=== PATIENT | female | born 1995 | race Caucasian/White ===

== ENCOUNTER 2016-08-14 19:27 | Emergency (ER) | payer MEDICAID, OTHER ==
[~2016-08-14] VITALS: Ht 157.5 cm; Wt 71.5 kg
[2016-08-14 19:31] VITALS: BP 99/64
[2016-08-14 20:32] LABS: PATH.CAST-FLAG NOT PRESENT; SPERM-FLAG NOT PRESENT; SRC-FLAG NOT PRESENT; XTAL-FLAG NOT PRESENT; YLC-FLAG NOT PRESENT
[2016-08-14 20:47] LABS: HCG UR OBC PASS
== END 2016-08-14 21:39 | disposition home or self-care (01) ==
LOC: ED 21:30
DX: N30.91 Cystitis, unspecified with hematuria (principal); N39.0 Urinary tract infection, site not specified
CPT/HCPCS: 81001; 81025; 87077; 87086; 87186; 99284

== ENCOUNTER 2018-02-02 19:38 | Emergency (ER) | payer MEDICAID, OTHER ==
[~2018-02-02] VITALS: Ht 160 cm; Wt 75.0 kg
[2018-02-02 19:51] VITALS: BP 137/83
== END 2018-02-02 21:40 | disposition home or self-care (01) ==
LOC: ED 20:04
DX: F33.9 Major depressive disorder, recurrent, unspecified (principal); F10.129 Alcohol abuse with intoxication, unspecified
CPT/HCPCS: 99284

== ENCOUNTER 2018-05-02 15:58 | Emergency (ER) | payer OTHER ==
[~2018-05-02] VITALS: Ht 157.5 cm; Wt 63.0 kg
[2018-05-02 16:17] VITALS: BP 112/71
[2018-05-02] MEDS ORDERED: MAALOX/HYOSCYAMINE/LIDOCAINE 45 ML BTL PO ONE (16:30)
[2018-05-02 17:10] LABS: BASOPHILS # (AUTO) 0.04 x10^3/uL (0-0.1); BASOPHILS % (AUTO) 1 % (0-1); EOSINOPHILS # (AUTO) 0.08 x10^3/uL (0-0.4); EOSINOPHILS % (AUTO) 1 % (1-7); LYMPHOCYTES # (AUTO) 2.14 x10^3/uL (1-3.4); LYMPHOCYTES % (AUTO) 28 % (22-44); MD NO; MEAN CORPUSCULAR HEMOGLOBIN 24.8 pg (27.0-34.8); MEAN CORPUSCULAR HGB CONC 32.1 g/dL (32.4-35.8); MEAN CORPUSCULAR VOLUME 77.3 fL (80-100); MEAN PLATELET VOLUME 9.2 fL (7.4-10.4); MONOCYTES # (AUTO) 0.44 x10^3/uL (0.2-0.8); MONOCYTES % (AUTO) 6 % (2-9); NEUTROPHILS # (AUTO) 4.83 x10^3/uL (1.8-6.8); NEUTROPHILS % (AUTO) 64 % (42-75); PLATELET COUNT 363 x10^3/uL (130-400); RED BLOOD COUNT 4.71 x10^6/uL (3.82-5.3)
[2018-05-02] MEDS ORDERED: MAALOX/HYOSCYAMINE/LIDOCAINE 45 ML BTL ONE (17:11)
[2018-05-02 17:22] LABS: ALANINE AMINOTRANSFERASE 17 U/L (12-78); ALBUMIN 3.5 g/dL (3.4-5.0); ANION GAP 6 mmol/L (5-15); CALCIUM 8.3 mg/dL (8.5-10.1); CHLORIDE 108 mmol/L (98-107); CREATININE 0.71 mg/dL (0.55-1.02)
[2018-05-02 17:27] LABS: ALKALINE PHOSPHATASE 78 U/L (45-117); BILIRUBIN,TOTAL 0.2 mg/dL (0.2-1.0); TOTAL PROTEIN 7.7 g/dL (6.4-8.2)
[2018-05-02 17:52] LABS: MICROSCOPIC AUTO
[2018-05-02 18:01] LABS: CULTURE INDICATED? YES
== END 2018-05-02 18:21 | disposition home or self-care (01) ==
LOC: ED 17:01
DX: K29.00 Acute gastritis without bleeding (principal); N30.01 Acute cystitis with hematuria; J06.9 Acute upper respiratory infection, unspecified; H65.01 Acute serous otitis media, right ear
CPT/HCPCS: 36415; 80053; 81001; 83690; 84703; 85025; 87086; 99283

== ENCOUNTER 2019-06-27 18:34 | Emergency (ER) | payer SELFPAY ==
[~2019-06-27] VITALS: Ht 157.5 cm; Wt 71.0 kg
[2019-06-27] MEDS ORDERED: ONDANSETRON 2MG/ML, 2ML ONE (18:50)
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
[2019-06-27] MEDS ORDERED: SODIUM CHLORIDE 0.9% 1,000ML IVBOLUS ONE (19:00)
[2019-06-27] MEDS ORDERED: ONDANSETRON 2MG/ML, 2ML IVPush ONE (19:00)
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
[2019-06-27 19:06] LABS: BASOPHILS # (AUTO) 0.03 x10^3/uL (0-0.1); BASOPHILS % (AUTO) 0 % (0-1); EOSINOPHILS # (AUTO) 0.11 x10^3/uL (0-0.4); EOSINOPHILS % (AUTO) 1 % (1-7); LYMPHOCYTES # (AUTO) 2.11 x10^3/uL (1-3.4); LYMPHOCYTES % (AUTO) 22 % (22-44); MD NO; MEAN CORPUSCULAR HEMOGLOBIN 25.7 pg (27.0-34.8); MEAN CORPUSCULAR HGB CONC 31.9 g/dL (32.4-35.8); MEAN CORPUSCULAR VOLUME 80.8 fL (80-100); MEAN PLATELET VOLUME 9.8 fL (7.4-10.4); MONOCYTES # (AUTO) 0.66 x10^3/uL (0.2-0.8); MONOCYTES % (AUTO) 7 % (2-9); NEUTROPHILS # (AUTO) 6.74 x10^3/uL (1.8-6.8); NEUTROPHILS % (AUTO) 70 % (42-75); PLATELET COUNT 299 x10^3/uL (130-400); RED BLOOD COUNT 5.14 x10^6/uL (3.82-5.3); RED CELL DISTRIBUTION WIDTH 17.2 % (9.6-15.2)
[2019-06-27 19:10] LABS: ALBUMIN 3.7 g/dL (3.4-5.0); ANION GAP 10 mmol/L (5-15); CALCIUM 7.9 mg/dL (8.5-10.1); CHLORIDE 110 mmol/L (98-107); SALICYLATE LEVEL 2.2 mg/dL (2.8-20.0)
--- NOTE | 2019-06-27 19:12 | NUR ---
OFFGOING NURSE STATES THAT PT SAID "I JUST WANT TO ", NO FURTHER INFOR OBTAINED AT THIS TIME DUE TO LEVEL OF ETOH.
[2019-06-27 19:16] LABS: ALANINE AMINOTRANSFERASE 17 U/L (12-78); ALKALINE PHOSPHATASE 58 U/L (45-117); BILIRUBIN,TOTAL 0.5 mg/dL (0.2-1.0); CREATININE 1.01 mg/dL (0.55-1.02); TOTAL PROTEIN 8.1 g/dL (6.4-8.2)
[2019-06-27] MEDS ORDERED: DEXTROSE 50%, 50ML SYRINGE ONE (19:55)
[2019-06-27] MEDS ORDERED: DEXTROSE 50%, 50ML SYRINGE IVPush ONE (20:00)
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
[2019-06-27 20:14] LABS: AMPHETAMINE SCREEN, URINE Negative (Negative); BARBITURATE SCREEN, URINE Negative (Negative); BENZODIAZEPINE SCREEN, URINE Negative (Negative); CANNABINOID SCREEN, URINE Positive (Negative); COCAINE SCREEN, URINE Negative (Negative); METHADONE SCREEN, URINE Negative (Negative); OPIATE SCREEN, URINE Negative (Negative)
--- NOTE | 2019-06-27 20:37 | NUR ---
PT AWAKENS VERBAL, IS AA AND O TIMES , REMAINS PLEASANT AND COOPERATIVE. PLAN TO TELEPSYCH PT WHEN SOBER.
--- NOTE | 2019-06-27 21:11 | NUR ---
AWAKEN VERBAL, FSBS 68, PT TAKING PO FLUIDS, APPLE JUICE. ONLY COMPLAIN IS DIZZINESS. REMAINS PLEASANT AND COOPERATIVE
--- NOTE | 2019-06-27 21:24 | NUR ---
PT MOVED TO ROOM 3, AWAIT SOBRIETY FOR TELE PSYCH. PT REMAINS PLEASANT AND COOPERATIVE WHEN AWAKE. AA O TIMES 4. TAKING MORE JUICE, PO FLUIDS AT BEDSIDE.
--- NOTE | 2019-06-27 23:09 | NUR ---
TELEPSYCH CALLED AND NEW CONSULT REQUESTED. CAMERA [id number] PLACED IN ROOM.
--- NOTE | 2019-06-27 23:14 | NUR ---
PT TO BR INDEPENDENTLY. BACK TO BED. MONITOR IN PLACE. LINENS CHANGED. PT HAD 1 EPISODE OF EMESIS. AWAITING TELEPSYCH.
--- NOTE | 2019-06-27 23:50 | NUR ---
PT SITTING UPRIGHT IN BED. FEELING BETTER. DAD AT BEDSIDE. AWAITING TELEPSYCH.
[2019-06-28 04:14] VITALS: BP 111/80
== END 2019-06-28 05:59 | disposition home or self-care (01) ==
LOC: ED 21:29
DX: F10.120 Alcohol abuse with intoxication, uncomplicated (principal); R45.851 Suicidal ideations; E87.6 Hypokalemia; F32.9 Major depressive disorder, single episode, unspecified
CPT/HCPCS: 36415; 71045; 80053; 80307; 82962; 84703; 85025; 93005; 96374; 96375; 99285; J2405; J7030

== ENCOUNTER 2019-10-01 12:58 | Emergency (ER) | payer SELFPAY ==
[~2019-10-01] VITALS: Ht 157.5 cm; Wt 69.1 kg
--- NOTE | 2019-10-01 15:03 | NUR ---
SUPERVISOR CUTTING AND SEWING ROOM: PT TO ROOM FROM LOBBY.
--- NOTE | 2019-10-01 15:05 | NUR ---
PATIENT AMBULATORY WITH STEADY GAIT TO RESTROOM. UA CUP PROVIDED
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
--- NOTE | 2019-10-01 15:31 | NUR ---
BREAK RN: REPORT TO PRIMARY RNROBIN
[2019-10-01 15:50] LABS: MICROSCOPIC AUTO
[2019-10-01 15:50] LABS: BASOPHILS # (AUTO) 0.06 x10^3/uL (0-0.1); BASOPHILS % (AUTO) 1 % (0-1); EOSINOPHILS # (AUTO) 0.18 x10^3/uL (0-0.4); EOSINOPHILS % (AUTO) 2 % (1-7); LYMPHOCYTES # (AUTO) 2.31 x10^3/uL (1-3.4); LYMPHOCYTES % (AUTO) 24 % (22-44); MD NO; MEAN CORPUSCULAR HEMOGLOBIN 26.8 pg (27.0-34.8); MEAN CORPUSCULAR HGB CONC 32.1 g/dL (32.4-35.8); MEAN CORPUSCULAR VOLUME 83.4 fL (80-100); MEAN PLATELET VOLUME 9.4 fL (7.4-10.4); MONOCYTES # (AUTO) 0.64 x10^3/uL (0.2-0.8); MONOCYTES % (AUTO) 7 % (2-9); NEUTROPHILS # (AUTO) 6.35 x10^3/uL (1.8-6.8); NEUTROPHILS % (AUTO) 67 % (42-75); PLATELET COUNT 298 x10^3/uL (130-400); RED BLOOD COUNT 4.88 x10^6/uL (3.82-5.3); RED CELL DISTRIBUTION WIDTH 16.9 % (9.6-15.2)
[2019-10-01 15:57] LABS: ALBUMIN 3.1 g/dL (3.4-5.0); ANION GAP 3 mmol/L (5-15); CALCIUM 8.1 mg/dL (8.5-10.1); CHLORIDE 110 mmol/L (98-107)
[2019-10-01] MEDS ORDERED: AZITHROMYCIN 500 MG TABLET PO ONE (16:30)
[2019-10-01] MEDS ORDERED: CEFTRIAXONE 250 MG IM ONE (16:30)
--- NOTE | 2019-10-01 16:30 | NUR ---
PT TRANSFERED TO DIRECTOR OF CURRICULUM AND INSTRUCTION [facility] FOR PELIVC EXAM. PELVIC SET UP IN ROOM. PT RESTING ON [facility] W/ CALL LIGHT IN REACH, VSS, FARRAHN.
[2019-10-01 16:41] VITALS: BP 103/76
[2019-10-01] MEDS ORDERED: LIDOCAINE-MPF 1%, 5ML ONE (16:43)
[2019-10-01] MEDS ORDERED: AZITHROMYCIN 250 MG TABLET ONE (16:43)
[2019-10-01] MEDS ORDERED: CEFTRIAXONE 250 MG ONE (16:43)
--- NOTE | 2019-10-01 16:49 | NUR ---
PT MEDICATED PER EMAR.
--- NOTE | 2019-10-01 17:39 | NUR ---
PT RESTING ON [facility] W/ CALL LIGHT IN REACH, RESP EVEN AND UNLABORED. NADN. AWAITING RESULTS.
[2019-10-01 17:51] LABS: CLUE CELLS PRESENT (NONE SEEN); WET PREP WBCS FEW (FEW)
--- NOTE | 2019-10-01 18:19 | NUR ---
Patient given discharge instructions and they have confirmed that they understand the instructions. Patient ambulatory with steady gait.
== END 2019-10-01 18:20 | disposition home or self-care (01) ==
LOC: ED 17:20
DX: S39.012A Strain of muscle, fascia and tendon of lower back, initial encounter (principal); S60.221A Contusion of right hand, initial encounter; S80.02XA Contusion of left knee, initial encounter; N76.0 Acute vaginitis; F17.200 Nicotine dependence, unspecified, uncomplicated; V49.59XA Passenger injured in collision with other motor vehicles in traffic accident, initial encounter; Y93.89 Activity, other specified; Y92.488 Other paved roadways as the place of occurrence of the external cause; Y99.8 Other external cause status
CPT/HCPCS: 36415; 71045; 73130; 73564; 80048; 81001; 82040; 84703; 85025; 87077; 87086; 87210; 87491; 87591; 87808; 96372; 99284; J0696; 87186

== ENCOUNTER 2020-08-22 13:42 | Emergency (ER) | payer SELFPAY ==
[~2020-08-22] VITALS: Ht 157.5 cm; Wt 69.0 kg
--- NOTE | 2020-08-22 14:35 | NUR ---
BONE TENDER: PT TO ROOM FROM LOBBY
[2020-08-22 14:38] LABS: BASOPHILS % (AUTO) 1 % (0-1); EOSINOPHILS % (AUTO) 1 % (1-7); LYMPHOCYTES % (AUTO) 20 % (22-44); MEAN CORPUSCULAR HEMOGLOBIN 29.2 pg (27.0-34.8); MEAN CORPUSCULAR HGB CONC 33.3 g/dL (32.4-35.8); MONOCYTES % (AUTO) 7 % (2-9); NEUTROPHILS % (AUTO) 72 % (42-75); PLATELET COUNT 340 x10^3/uL (130-400); RED BLOOD COUNT 4.98 x10^6/uL (3.82-5.3); RED CELL DISTRIBUTION WIDTH 14.6 % (9.6-15.2)
[2020-08-22 14:51] LABS: ALBUMIN 3.7 g/dL (3.4-5.0); ANION GAP 1 mmol/L (5-15); CALCIUM 8.9 mg/dL (8.5-10.1); CHLORIDE 108 mmol/L (98-107)
--- NOTE | 2020-08-22 14:55 | NUR ---
+ LMP 07/08/2020, C/O CERRATO X 1 WEEK, RIGHT HAND PAIN NO TRAUMA, STATES "IT STARTS REALLY HURTING WHEN I'M AT WORK" PT VSS, CALL LIGHT W/I REACH. PROVIDER EVAL PENDING
--- NOTE | 2020-08-22 14:58 | NUR ---
PT INSTRUCTED ON COLLECTION CC URINE. PT AMBULATED TO BATHROOM, URINE COLLECTED AND SENT TO LAB. CALL LIGHT W/I REACH
[2020-08-22 15:20] LABS: MICROSCOPIC NOT IND
[2020-08-22 15:35] VITALS: BP 102/62
--- NOTE | 2020-08-22 15:35 | NUR ---
DR URBANO AT BEDSIDE, POC DISCUSSED AND QUESTIONS ANSWERED.
== END 2020-08-22 16:31 | disposition home or self-care (01) ==
LOC: ED 16:00
DX: R51.9 Headache, unspecified (principal); F17.210 Nicotine dependence, cigarettes, uncomplicated
CPT/HCPCS: 36415; 80048; 81003; 82040; 84703; 85025; 99283

== ENCOUNTER 2020-10-29 12:56 | Emergency (ER) | payer MEDICAID ==
[~2020-10-29] VITALS: Ht 157.5 cm; Wt 74.0 kg
[2020-10-29 13:58] LABS: BASOPHILS % (AUTO) 1 % (0-1); EOSINOPHILS % (AUTO) 1 % (1-7); LYMPHOCYTES % (AUTO) 21 % (22-44); MEAN CORPUSCULAR HEMOGLOBIN 29.5 pg (27.0-34.8); MEAN CORPUSCULAR HGB CONC 33.1 g/dL (32.4-35.8); MEAN PLATELET VOLUME 9.5 fL (7.4-10.4); MONOCYTES % (AUTO) 5 % (2-9); NEUTROPHILS % (AUTO) 72 % (42-75); PLATELET COUNT 256 x10^3/uL (130-400); RED BLOOD COUNT 4.48 x10^6/uL (3.82-5.3); RED CELL DISTRIBUTION WIDTH 14.8 % (9.6-15.2)
[2020-10-29 14:08] LABS: ALANINE AMINOTRANSFERASE 15 U/L (12-78); ALBUMIN 2.9 g/dL (3.4-5.0); ANION GAP 4 mmol/L (5-15); CALCIUM 8.4 mg/dL (8.5-10.1); CHLORIDE 108 mmol/L (98-107); CREATININE 0.46 mg/dL (0.55-1.02)
[2020-10-29 14:25] LABS: ALKALINE PHOSPHATASE 39 U/L (45-117); BILIRUBIN,TOTAL 0.3 mg/dL (0.2-1.0); TOTAL PROTEIN 6.8 g/dL (6.4-8.2)
[2020-10-29 14:38] LABS: MICROSCOPIC NOT IND
[2020-10-29 15:47] VITALS: BP 122/74
== END 2020-10-29 15:49 | disposition home or self-care (01) ==
LOC: ED 13:58
DX: O26.892 Other specified pregnancy related conditions, second trimester (principal); R10.31 Right lower quadrant pain; R10.32 Left lower quadrant pain; O99.332 Smoking (tobacco) complicating pregnancy, second trimester; F17.210 Nicotine dependence, cigarettes, uncomplicated; Z3A.16 16 weeks gestation of pregnancy
CPT/HCPCS: 36415; 76815; 80053; 81003; 84702; 85025; 86901; 99284